=== PATIENT | female | born 1990 | race Caucasian/White ===

== ENCOUNTER 2016-12-24 12:26 | Emergency (ER) | payer OTHER ==
[~2016-12-24] VITALS: Ht 154.9 cm; Wt 59.9 kg
[2016-12-24 12:31] VITALS: BP 115/65; PULSE 78; RESP 16; TEMP 97; O2SAT 100
[2016-12-24] MEDS ORDERED: [UNRECOGNIZED DRUG - REMARK] PO (12:52)
[2016-12-24] MEDS ORDERED: BUSP5TAB PO (12:52)
[2016-12-24] MEDS ORDERED: SODIUM CHLOR 0.9% 1000 ML INJ 1,000 ML IV SCH (12:54)
[2016-12-24] MEDS ORDERED: MORPHINE SULFATE 4 MG/ML INJ IV PUSH ONE (13:00)
[2016-12-24] MEDS ORDERED: SODIUM CHLORIDE 0.9% FLUSH 10 ML FLUSH IV FLUSH PRN (13:00)
[2016-12-24] MEDS ORDERED: ONDANSETRON HCL 4 MG/2 ML VIAL IVP ONE (13:00)
--- NOTE | 2016-12-24 13:10 | PD ---
HPI Chief Complaint: Abdominal Pain Time Seen by Provider: 12:44 Travel History International Travel<30 days: No Contact w/Intl Traveler<30days: No Traveled to known affect area: No History of Present Illness HPI The patient is a 26-year-old female who presents to the emergency department for right upper quadrant abdominal pain for the last 2 weeks. The patient has an intermittent history of right upper quadrant abdominal pain that radiates to the back for the last 2 weeks, exacerbated by eating, associated with nausea and one episode of vomiting, and there are no current alleviating factors. The symptoms are moderate in intensity. The patient denies any previous abdominal surgeries. She denies any associated fever, chills, or sweats. The patient states she had similar episode in April 2016 was diagnosed with a stomach flu the last approximately one month. She denies any known history of pancreatitis, biliary colic, or gallstones. The patient denies , states that she is a lesbian. She denies any dysuria, frequency, urgency, vaginal discharge, or vaginal bleeding. PFSH Past Medical History Asthma: Yes Anxiety: Yes Diminished Hearing: No Respiratory: Yes (asthma) Influenza Vaccination: No ?: Not LMP: 11/25/16 Social History Alcohol Use: Yes (occ) Tobacco Use: Yes (1 ppd) Substance Use: No Allergies-Medications (Allergen,Severity, Reaction): Coded Allergies: etodolac (Verified Allergy, Severe, Anaphylaxis, 12/24/16) Reported Meds & Prescriptions Reported Meds & Active Scripts Active Reported Buspirone (Buspirone HCl) 5 Mg Tab 5 Mg PO BID [birh cotrole pill] 1 Tab PO DAILY Review of Systems Except as stated in HPI: all other systems reviewed are Neg General / Constitutional: No: Fever Cardiovascular: No: Chest Pain or Discomfort Respiratory: No: Shortness of Breath Gastrointestinal: Positive: Nausea, Vomiting, Diarrhea (3 episodes of loose stool today, just started today), Abdominal Pain Genitourinary: No: Urgency, Frequency, Dysuria, Discharge, Vaginal Bleeding Skin: No Rash Physical Exam Narrative GENERAL: Awake, alert, pleasant 26-year-old female who appears her stated age and is in no acute respiratory distress. SKIN: Focused skin assessment warm/dry. HEAD: Atraumatic. Normocephalic. EYES: No injection or drainage. ENT: No nasal bleeding or discharge. Mucous membranes pink and moist. NECK: Trachea midline. No JVD. CARDIOVASCULAR: Regular rate and rhythm. No murmur appreciated. RESPIRATORY: No accessory muscle use. Clear to auscultation. Breath sounds equal bilaterally. GASTROINTESTINAL: Abdomen soft, tender palpation right upper quadrant. Negative McBurney's. Back: No CVA tenderness. MUSCULOSKELETAL: No obvious deformities. No clubbing. No cyanosis. No edema. NEUROLOGICAL: Awake and alert. No obvious cranial nerve deficits. Motor grossly within normal limits. Normal speech. PSYCHIATRIC: Appropriate mood and affect; insight and judgment normal. Data Data Last Documented VS Vital Signs Date Time Temp Pulse Resp B/P Pulse Ox O2 Delivery O2 Flow Rate FiO2 12/24/16 13:15 95 12/24/16 12:46 18 12/24/16 12:31 97.0 78 115/65 Orders Complete Blood Count With Diff (12/24/16 12:54) Comprehensive Metabolic Panel (12/24/16 12:54) Lipase (12/24/16 12:54) Urinalysis - C+S If Indicated (12/24/16 12:54) Us Abdomen Gallbladder (12/24/16 ) Iv Access Insert/Monitor (12/24/16 12:54) Ecg Monitoring (12/24/16 12:54) Oximetry (12/24/16 12:54) Morphine Inj (Morphine Inj) (12/24/16 13:00) Ondansetron Inj (Zofran Inj) (12/24/16 13:00) Sodium Chlor 0.9% 1000 Ml Inj (Ns 1000 M (12/24/16 12:54) Sodium Chloride 0.9% Flush (Ns Flush) (12/24/16 13:00) Ed Urine Pregnancytest Poc (12/24/16 12:54) Labs Laboratory Tests Test 12/24/16 12/24/16 13:01 13:10 White Blood Count 5.1 TH/MM3 Red Blood Count 4.59 MIL/MM3 Hemoglobin 12.7 GM/DL Hematocrit 36.7 % Mean Corpuscular Volume 80.1 FL Mean Corpuscular Hemoglobin 27.6 PG Mean Corpuscular Hemoglobin 34.5 % Concent Red Cell Distribution Width 13.9 % Platelet Count 295 TH/MM3 Mean Platelet Volume 8.2 FL Neutrophils (%) (Auto) 67.6 % Lymphocytes (%) (Auto) 22.9 % Monocytes (%) (Auto) 6.3 % Eosinophils (%) (Auto) 2.1 % Basophils (%) (Auto) 1.1 % Neutrophils # (Auto) 3.4 TH/MM3 Lymphocytes # (Auto) 1.2 TH/MM3 Monocytes # (Auto) 0.3 TH/MM3 Eosinophils # (Auto) 0.1 TH/MM3 Basophils # (Auto) 0.1 TH/MM3 CBC Comment AUTO DIFF Differential Comment AUTO DIFF CONFIRMED Platelet Estimate NORMAL Platelet Morphology Comment NORMAL Sodium Level 140 MEQ/L Potassium Level 3.8 MEQ/L Chloride Level 110 MEQ/L Carbon Dioxide Level 22.8 MEQ/L Anion Gap 7 MEQ/L Blood Urea Nitrogen 7 MG/DL Creatinine 0.76 MG/DL Estimat Glomerular Filtration 91 ML/MIN Rate Random Glucose 86 MG/DL Calcium Level 8.1 MG/DL Total Bilirubin 0.4 MG/DL Aspartate Amino Transf 13 U/L (AST/SGOT) Alanine Aminotransferase 14 U/L (ALT/SGPT) Alkaline Phosphatase 42 U/L Total Protein 7.2 GM/DL Albumin 3.5 GM/DL Lipase 199 U/L Urine Color STRAW Urine Turbidity CLEAR Urine pH 7.0 Urine Specific Lowry 1.033 Urine Protein NEG mg/dL Urine Glucose (UA) NEG mg/dL Urine Ketones NEG mg/dL Urine Occult Blood TRACE Urine Nitrite NEG Urine Bilirubin NEG Urine Leukocyte Esterase NEG Urine RBC 0-3 /hpf Urine Squamous Epithelial 0-5 /hpf Cells Microscopic Urinalysis Comment CULT NOT INDICATED MDM Medical Decision Making Medical Screen Exam Complete: Yes Emergency Medical Condition: Yes Medical Record Reviewed: Yes Interpretation(s) Laboratory Tests Test 12/24/16 12/24/16 13:01 13:10 White Blood Count 5.1 TH/MM3 Red Blood Count 4.59 MIL/MM3 Hemoglobin 12.7 GM/DL Hematocrit 36.7 % Mean Corpuscular Volume 80.1 FL Mean Corpuscular Hemoglobin 27.6 PG Mean Corpuscular Hemoglobin 34.5 % Concent Red Cell Distribution Width 13.9 % Platelet Count 295 TH/MM3 Mean Platelet Volume 8.2 FL Neutrophils (%) (Auto) 67.6 % Lymphocytes (%) (Auto) 22.9 % Monocytes (%) (Auto) 6.3 % Eosinophils (%) (Auto) 2.1 % Basophils (%) (Auto) 1.1 % Neutrophils # (Auto) 3.4 TH/MM3 Lymphocytes # (Auto) 1.2 TH/MM3 Monocytes # (Auto) 0.3 TH/MM3 Eosinophils # (Auto) 0.1 TH/MM3 Basophils # (Auto) 0.1 TH/MM3 CBC Comment AUTO DIFF Sodium Level 140 MEQ/L Potassium Level 3.8 MEQ/L Chloride Level 110 MEQ/L Carbon Dioxide Level 22.8 MEQ/L Anion Gap 7 MEQ/L Blood Urea Nitrogen 7 MG/DL Creatinine 0.76 MG/DL Estimat Glomerular Filtration 91 ML/MIN Rate Random Glucose 86 MG/DL Calcium Level 8.1 MG/DL Total Bilirubin 0.4 MG/DL Aspartate Amino Transf 13 U/L (AST/SGOT) Alanine Aminotransferase 14 U/L (ALT/SGPT) Alkaline Phosphatase 42 U/L Total Protein 7.2 GM/DL Albumin 3.5 GM/DL Lipase 199 U/L Urine Color STRAW Urine Turbidity CLEAR Urine pH 7.0 Urine Specific Lowry 1.033 Urine Protein NEG mg/dL Urine Glucose (UA) NEG mg/dL Urine Ketones NEG mg/dL Urine Occult Blood TRACE Urine Nitrite NEG Urine Bilirubin NEG Urine Leukocyte Esterase NEG Urine RBC 0-3 /hpf Urine Squamous Epithelial 0-5 /hpf Cells Microscopic Urinalysis Comment CULT NOT INDICATED Ultrasound of the gallbladder reveals mild hepatomegaly. Otherwise unremarkable sonogram of the abdomen. Gallbladder contains no stones, demonstrates no wall thickening or pericholecystic fluid. Differential Diagnosis Differential diagnosis includes biliary colic, choledocholithiasis, cholecystitis, pancreatitis, gastritis, lower lobe pneumonia, diverticulitis, nephrolithiasis, pyelonephritis. Narrative Course IV was established, labs were drawn and sent, and the patient was placed on cardiac telemetry monitoring and continuous pulse oximetry monitoring. The patient was administered morphine, Zofran, and IV fluids for her symptoms. UA was sent to lab and bedside UA test was obtained, was negative. Ultrasound of the gallbladder was ordered. Labs are unremarkable. White count is normal. LFTs and lipase are within normal limits. UA reveals trace blood, no other significant findings to suggest obstructive gallbladder pathology. The patient's ultrasound is unremarkable, no evidence of pericholecystic fluid or gallstones. The patient's symptoms may be related to gastritis and/or peptic ulcer disease. The patient we placed on Zantac and will also be prescribed some Benzonia and Zofran for the interim as she is unable to take NSAIDs and NSAIDs may exacerbate her symptoms. She is advised to follow-up with gastroenterology if symptoms persist that she may benefit from outpatient endoscopy. The patient agrees and understands. She is stable for outpatient follow-up. Diagnosis Primary Impression: Epigastric pain Additional Impression: Gastritis Qualified Code: K29.00 - Acute gastritis, presence of bleeding unspecified, unspecified gastritis type Patient Instructions: General Instructions Additional Instructions: Medications as directed. Follow-up with your primary physician. Return if symptoms worsen or progress. Med/Other Pt SpecificInfo: Prescription(s) given Scripts Ondansetron Odt (Zofran Odt)4 Mg Tab4 Mg SL Q6HR PRN (Nausea/Vomiting) #7 TAB Ref 0 Prov:eBn Junior MD 12/24/16 Hydrocodone-Acetaminophen (Benzonia)5-325 mg Tab1 Tab PO Q6H PRN (PAIN) #12 TAB Ref 0 Prov:Ben Junior MD 12/24/16 Ranitidine (Zantac)150 Mg Nyh853 Mg PO BID #60 TAB Ref 0 Prov:Ben Junior MD 12/24/16 Disposition: 01 DISCHARGE HOME Condition: Stable Ben Junior MD Dec 24, 2016 13:10
[2016-12-24 13:14] LABS: AUTOMATED NEUTROPHIL # 3.4 TH/MM3 (1.8-7.7); BASOPHIL # 0.1 TH/MM3 (0-0.2); BASOPHIL % 1.1 % (0.0-2.0); EOSINOPHIL # 0.1 TH/MM3 (0-0.4); EOSINOPHIL % 2.1 % (0.0-4.0); HEMATOCRIT 36.7 % (35.0-46.0); LYMPH % 22.9 % (9.0-44.0); LYMPHOCYTE # 1.2 TH/MM3 (1.0-4.8); MEAN CELL VOLUME 80.1 FL (80.0-100.0); MEAN CORPUSCULAR HEMOGLOBIN 27.6 PG (27.0-34.0); MEAN CORPUSCULAR HGB CONC 34.5 % (32.0-36.0); MONO % 6.3 % (0.0-8.0); NEUT % 67.6 % (16.0-70.0); PLATELET COUNT 295 TH/MM3 (150-450); RED BLOOD COUNT 4.59 MIL/MM3 (4.00-5.30); RED CELL DISTRIBUTION WIDTH 13.9 % (11.6-17.2); WHITE BLOOD COUNT 5.1 TH/MM3 (4.0-11.0)
[2016-12-24 13:15] VITALS: O2SAT 95
[2016-12-24 13:19] LABS: HEMO FLAGS AUTO DIFF
[2016-12-24 13:22] LABS: CHLORIDE 110 MEQ/L (98-107); POTASSIUM 3.8 MEQ/L (3.5-5.1); SODIUM (NA) 140 MEQ/L (136-145)
[2016-12-24 13:27] LABS: ANION GAP 7 MEQ/L (5-15); BICARBONATE 22.8 MEQ/L (21.0-32.0); BLOOD UREA NITROGEN 7 MG/DL (7-18)
[2016-12-24 13:29] LABS: ALT (GPT) 14 U/L (10-53); AST (GOT) 13 U/L (15-37)
[2016-12-24 13:30] LABS: GLOMERULAR FILTRATION RATE 91 ML/MIN (>89)
[2016-12-24 13:31] LABS: TOTAL BILIRUBIN ADULT 0.4 MG/DL (0.2-1.0)
[2016-12-24 13:32] LABS: ALKALINE PHOSPHATASE 42 U/L (45-117)
[2016-12-24 13:49] LABS: BLOOD, URINE TRACE (NEG); GLUCOSE,URINE NEG (NEG); KETONE, URINE NEG (NEG); NITRITE,URINE NEG (NEG)
[2016-12-24 14:03] LABS: URINE COLOR STRAW (YELLW/STRAW)
[2016-12-24 14:04] LABS: COMMENT (UR) CULT NOT INDICATED; CULTURE IF INDICATED CULT NOT INDICATED; RBC, URINE 0-3 /hpf (0-3); SQUAMOUS EPITHELIAL CELL URINE 0-5 /hpf (0-5)
[2016-12-24 14:12] LABS: PLATELET ESTIMATE SMEAR NORMAL (NORMAL); PLATELET MORPHOLOGY NORMAL (NORMAL); SCAN/DIFF AUTO DIFF CONFIRMED
--- NOTE | 2016-12-24 14:28 | RADRPT ---
EXAM DATE/TIME: 12/24/2016 14:03 [facility] COMPARISON: No previous studies available for comparison. INDICATIONS : Right upper quadrant pain. MEDICAL HISTORY : Asthma. Anxiety. Tobacco use. SURGICAL HISTORY : None. ENCOUNTER: Initial ACUITY: 2 weeks PAIN SCORE: 4/10 LOCATION: Right upper quadrant MEASUREMENTS: LIVER: 17.1 cm length COMMON DUCT: 3 mm RIGHT KIDNEY: 10.8 x 4.2 x 4.0 cm FINDINGS: LIVER: The liver is enlarged but demonstrates no focal mass or biliary ductal dilatation. Hepatopetal flow i s noted within the portal vein. COMMON DUCT: No intraluminal mass or stone visualized. GALLBLADDER: Contains no stones, demonstrates no wall thickening or pericholecystic fluid. PANCREAS: The visualized portions are within normal limits. RIGHT KIDNEY: No evidence of hydronephrosis, stone, or mass. CONCLUSION: Mild hepatomegaly. Otherwise unremarkable sonogram of the abdomen. Tree Chisholm MD on December 24, 2016 at 14:16 Board Certified Radiologist. This report was verified electronically.
[2016-12-24] MEDS ORDERED: ZOFR4TAB3 SL (14:39)
[2016-12-24] MEDS ORDERED: NORC5TAB PO (14:39)
[2016-12-24] MEDS ORDERED: ZANT150T2 PO (14:39)
[2016-12-24 15:32] VITALS: BP 103/60
== END 2016-12-24 15:37 | disposition home or self-care (01) ==
LOC: PHED 12:26
DX: K29.00 Acute gastritis without bleeding (principal); F17.200 Nicotine dependence, unspecified, uncomplicated
CPT/HCPCS: 76705; 80053; 81001; 83690; 84703; 85025; 96361; 96374; 96375; 99285; J2270; J2405; J7030

== ENCOUNTER 2018-01-26 10:10 | Inpatient (IN) ==
--- NOTE | 2018-01-26 11:49 | ED ---
HPI General Chief Complaint: Psychiatric Symptoms Stated Complaint: Psych Eval Time Seen by Provider: 01/26/18 11:27 Source: patient Mode of arrival: ambulatory Limitations: no limitations History of Present Illness HPI Narrative: 27-year-old female with history of depression presents to emergency department for evaluation at the recommendation of her therapist, Madyson. She states that she had a first appointment with her therapist today and she recommended she come to the emergency department voluntarily. Patient states that she has had suicidal ideations but is never had a suicide attempt. Says she has a history of self-mutilation by cutting her wrists but has not done this in some time. Says she has been on medications for depression since June but does not believe they are working. Says she drinks alcohol occasionally, approximately 1 time per week. She also smokes 1/2-1 pack per day of tobacco. Says she has a history of migraines, asthma, GERD. States she lives with her at home. MD complaint: suicidal ideation Duration: constant History of same: Yes Relieving factors: none Exacerbating factors: none Associated psychiatric symptoms: depression and suicidal ideation Associated symptoms: denies other symptoms Treatments prior to arrival: none If self harm: admits thoughts of self harm Related Data Home Medications Medication Instructions Recorded Confirmed alprazolam [Xanax] 0.25 mg PO DAILY 01/26/18 01/26/18 hydroxyzine HCl 50 mg PO DAILY 01/26/18 01/26/18 hydroxyzine HCl 150 mg PO HS 01/26/18 01/26/18 mirtazapine 15 mg PO HS 01/26/18 01/26/18 pantoprazole 40 mg PO DAILY 01/26/18 01/26/18 venlafaxine [Effexor XR] 150 mg PO DAILY 01/26/18 01/26/18 Allergies Allergy/AdvReac Type Severity Reaction Status Date / Time etodolac Allergy Severe Anaphylaxis Verified 01/26/18 13:06 ibuprofen Allergy UNKNOWN Verified 01/26/18 13:09 naproxen Allergy UNKNOWN Verified 01/26/18 13:09 NSAIDS (Non-Steroidal Allergy UNKNOWN Verified 01/26/18 13:09 Anti-Inflamma Review of Systems ROS: all other systems reviewed are negative PMFSH History History Provided By: Patient Social History Social History Substance History: Past History Second Hand Smoke Exposure: Yes (PT stated her smokes) Smoking Status: Current every day smoker Tobacco Type: Cigarettes How Often Do You Have a Drink Containing Alcohol: 2 to 4 times a month Recent Travel in [place] within the Last 8 Weeks: No Recent Out of Country Travel within the Last 8 Weeks: No Exam Narrative Exam Narrative: GENERAL: WD, WN in NAD SKIN: Focused skin assessment warm/dry. HEAD: Atraumatic. Normocephalic. EYES: Pupils equal and round. No scleral icterus. No injection or drainage. ENT: No nasal bleeding or discharge. Mucous membranes pink and moist. NECK: Trachea midline. No JVD. CARDIOVASCULAR: Regular rate and rhythm. No murmur appreciated. RESPIRATORY: No accessory muscle use. Clear to auscultation. Breath sounds equal bilaterally. MUSCULOSKELETAL: No obvious deformities. No clubbing. No cyanosis. No edema. NEUROLOGICAL: Awake and alert. No obvious cranial nerve deficits. Motor grossly within normal limits. Normal speech. PSYCHIATRIC: Depressed mood and flat affect; insight and judgment normal. Course Initial Documented Vital Signs Temperature 98.4 F 01/26/18 10:13 Pulse Rate 97 H 01/26/18 10:13 Respiratory Rate 14 01/26/18 10:13 Blood Pressure 109/60 01/26/18 10:13 Pulse Oximetry 100 01/26/18 10:13 Last Documented Vital Signs Temperature 98.7 F 01/27/18 14:45 Pulse Rate 92 H 01/27/18 14:45 Respiratory Rate 18 01/27/18 14:45 Blood Pressure 116/59 L 01/27/18 14:45 Pulse Oximetry 98 01/27/18 14:45 Medical Decision Making [facility] Narrative Medical decision making narrative: 27-year-old female presents emergency department voluntarily for suicidal ideations at the recommendation of her therapist. Says she was having her first appointment when she recommended patient come to the emergency department for evaluation. Vital signs are stable. Labs are ordered for evaluation. Labs are stable. Patient is medically cleared to see psych. @1829, patient stated she wants to leave. Because patient has suicide ideations , I do not believe this is in the best interest of the patient. Kam Act initiated. Medical Screen Exam Complete: Yes Emergency Medical Condition: Yes Differential Diagnosis Differential Diagnosis: Suicide ideations, depression, malingering, anxiety, adjustment disorder Medical Records Medical records reviewed: Yes I reviewed the patient's medical records. Patient is presented to this emergency department one time for gastric pain. Lab Data Result diagrams: 01/26/18 12:53 01/26/18 12:53 POC Results POC Urine Results Negative Lab Results 01/26/18 01/26/18 01/26/18 Range/Units 11:00 12:53 12:53 WBC 8.1 (4.0-11.0) th/mm3 RBC 4.13 (4.00-5.30) mil/mm3 Hgb 12.2 (11.6-15.3) gm/dL Hct 35.8 (35.0-46.0) % MCV 86.6 (80.0-100.0) fL MCH 29.6 (27.0-34.0) pg MCHC 34.2 (32.0-36.0) % RDW 14.1 (11.6-17.2) % Plt Count 322 (150-450) th/mm3 MPV 7.3 (7.0-11.0) fL Neut % (Auto) 73.6 H (16.0-70.0) % Lymph % (Auto) 17.4 (9.0-44.0) % Person % (Auto) 5.2 (0.0-8.0) % Eos % (Auto) 3.3 (0.0-4.0) % Baso % (Auto) 0.5 (0.0-2.0) % Neut # (Auto) 6.0 (1.8-7.7) th/mm3 Lymph # (Auto) 1.4 (1.0-4.8) th/mm3 Person # (Auto) 0.4 (0.0-0.9) th/mm3 Eos # (Auto) 0.3 (0.0-0.4) th/mm3 Baso # (Auto) 0.0 (0.0-0.2) th/mm3 WBC Differential . Differential Comment Auto diff final Sodium 141 (136-145) meq/L Potassium 3.9 (3.5-5.1) meq/L Chloride 109 H (98-107) meq/L Carbon Dioxide 22.4 (21.0-32.0) meq/L Anion Gap 10 (5-15) meq/L BUN 10 (7-18) mg/dL Creatinine 0.72 (0.50-1.00) mg/dL Estimated GFR Greater than 89 (>89) mL/min Random Glucose 92 (74-106) mg/dL Calcium 8.5 (8.5-10.1) mg/dL Total Bilirubin 0.8 (0.2-1.0) mg/dL AST 26 (15-37) U/L ALT 37 (10-53) U/L Alkaline Phosphatase 73 (45-117) U/L Total Protein 7.0 (6.4-8.2) g/dL Albumin 3.8 (3.4-5.0) g/dL TSH 1.060 (0.358-3.740) uIU/mL Urine Opiates Screen Neg (Neg) Ur Barbiturates Screen Neg (Neg) Ur Amphetamines Screen Neg (Neg) U Benzodiazepines Scrn Neg (Neg) Urine Cocaine Screen Neg (Neg) U Cannabinoids Screen Neg (Neg) Serum Alcohol Less than 3 (0-5) mg/dL Discharge Plan Discharge Disposition Patient Disposition: 30 Still Patient Discharge Condition Condition: Stable Discharge Details Diagnosis: Suicidal ideation Physicians Team ED Provider: Ben Junior ED Midlevel Provider: Arabella Mason Attending Provider: Arnav Locke Status ED Status: Left Department Discharge Information Discharge Date/Time: 01/27/18 10:54
[2018-01-26 12:01] LABS: Amphetamine Screen,Urine Neg (Neg); Barbiturate Screen,Urine Neg (Neg); Cannabinoid Screen,Urine Neg (Neg); Cocaine Screen,Urine Neg (Neg)
[2018-01-26 12:02] LABS: Opiate Screen,Urine Neg (Neg)
[2018-01-26 13:36] LABS: Baso % (Auto) 0.5 % (0.0-2.0); Eos # (Auto) 0.3 th/mm3 (0.0-0.4); Eos % (Auto) 3.3 % (0.0-4.0); Hematocrit 35.8 % (35.0-46.0); Hemoglobin 12.2 gm/dL (11.6-15.3); Lymph # (Auto) 1.4 th/mm3 (1.0-4.8); Lymph % (Auto) 17.4 % (9.0-44.0); Mean Corpuscular HGB Conc 34.2 % (32.0-36.0); Mean Corpuscular Hemoglobin 29.6 pg (27.0-34.0); Mean Corpuscular Volume 86.6 fL (80.0-100.0); Mean Platelet Volume 7.3 fL (7.0-11.0); Mono # (Auto) 0.4 th/mm3 (0.0-0.9); Mono % (Auto) 5.2 % (0.0-8.0); Neut % (Auto) 73.6 % (16.0-70.0); Platelet Count 322 th/mm3 (150-450); Red Blood Count 4.13 mil/mm3 (4.00-5.30); Red Cell Distribution Width 14.1 % (11.6-17.2); White Blood Count 8.1 th/mm3 (4.0-11.0)
[2018-01-26 13:57] LABS: Albumin 3.8 g/dL (3.4-5.0); Anion Gap 10 meq/L (5-15); Aspartate Aminotransferase 26 U/L (15-37); Blood Urea Nitrogen 10 mg/dL (7-18); Calcium 8.5 mg/dL (8.5-10.1); Carbon Dioxide 22.4 meq/L (21.0-32.0); Chloride 109 meq/L (98-107); Glomerular Filtration Rate Greater Than 89 mL/min (>89); Glucose,Random 92 mg/dL (74-106); Potassium 3.9 meq/L (3.5-5.1); Sodium 141 meq/L (136-145)
[2018-01-26 13:58] LABS: Alanine Aminotransferase 37 U/L (10-53)
[2018-01-26 14:07] LABS: Alkaline Phosphatase 73 U/L (45-117)
[2018-01-27] MEDS ORDERED: Bisacodyl 10 MG Supp RECTAL PRN (09:09)
[2018-01-27] MEDS: Venlafaxine XR 75 MG Capsule PO SCH (12:54)
--- NOTE | 2018-01-27 16:55 | P.HPPSY ---
Provisional Diagnosis Admission Date: January 27, 2018 09:11 Andrews I.: Major depressive disorder, anxiety, OCD, PTSD Andrews II.: Deferred Andrews III.: Migraines Competence Certification of Person's Competence To Provide Express and Informed Consent I have personally examined Blanca Carrasco, a person being served at [facility] on, January 27, 2018 1644. Express and informed consent means consent voluntarily given in writing, by a competent person, after sufficient explanation and disclosure of the subject matter involved to enable the person to make a knowing and willful decision without any element of force, fraud, deceit, duress, or other form of constraint or coercion. This person is 18 years of age or older, is not now known to be incompetent to consent to treatment with a guardian advocate, and does not have a health care surrogate or proxy currently making medical treatment decisions. I have found this person to be one of the following: [x] Competent to provide express and informed consent, as defined above, for voluntary admission to this facility and is competent to provide express and informed consent for treatment. He/she has the consistent capacity to make well reasoned, willful, and knowing decisions concerning his or her medical or mental health treatment. The person fully and consistently understands the purpose of the admission for examination/placement and is fully capable of personally exercising all rights assured under [place] Incompetent to provide express and informed consent to voluntary admission, and this is incompetent to provide express and informed consent to treatment. The person must be transferred to involuntary status and a petition for a guardian advocate filed with the Circuit Court. [] Refusing to provide express and informed consent to voluntary admission but is competent to provide express and informed consent for treatment. The person must be discharged or transferred to involuntary status. Form shall be completed within 24 hours of a person's arrival at the receiving facility and filed in the clinical record of each person: 1. Admitted on a voluntary basis 2. Permitted to provide express and informed consent to his/her own treatment 3. Allowed to transfer from involuntary to voluntary status 4. Prior to permitting a person to consent to his or her own treatment after having been previously found incompetent to consent to treatment. History of Present Illness Capacity: Has capacity History of Present Illness: The patient is a 27-year-old woman, domiciled with her , mother of a 13 years old son, employed as a caregiver, with a psychiatric history of PTSD , OCD, depression, cannabis use disorder, no previous psychiatric hospitalizations, no previous suicide attempts, history of self cutting behavior without SI in the past, outpatient care in [facility], she is in Effexor 150 mg, hydroxyzine 50 mg twice daily, Xanax 0.25 mg twice daily, Remeron 15 mg, medical history of migraines, who presents to emergency department for evaluation at the recommendation of her therapist, Madyson in [facility]. She states that she had a first appointment with her therapist today and she recommended she come to the emergency department voluntarily. Patient states that she has had suicidal ideations but is never had a suicide attempt. Says she has a history of self-mutilation by cutting her wrists but has not done this in some time, she is to the disc self cutting which she was an adolescent. Says she has been on medications for depression since June but does not believe they are working. The patient reports that she has been under a lot of stress, very anxious, frequent mood swings, periods of irritability, with persistent suicidal thoughts, ideas of cutting herself, but she does not have the intention to do it. The patient is interested in exploring changing in medications. She denies suicidal and homicidal ideation, she denies visual and auditory hallucinations. She reports occasional use of alcohol, as well as marijuana. PPHx:iver, with a psychiatric history of PTSD, OCD, depression, cannabis use disorder, no previous psychiatric hospitalizations, no previous suicide attempts , history of self cutting behavior without SI in the past, outpatient care in [facility], she is in Effexor 150 mg, hydroxyzine 50 mg twice daily, Xanax 0.25 mg twice daily, Remeron 15 mg, PMHx medical history of migraines, Family Hx: Mother has scheduled for Substance Hx: Uses alcohol and marijuana occasionally Social Hx: Patient was born and raised in [place], she lives in [place] since 2010, she is , domiciled in [facility], she has a 13 years old son, 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 - Inpatient Certification I certify that the inpatient services were ordered in accordance with Medicare regulations governing the order. This includes certification that hospital inpatient services are reasonable and necessary and in the case of services not specified as inpatient-only under 42 CFR 419.22(n), that they are appropriately provided as inpatient services in accordance to with the 2-midnight benchmark under 43 CFR 412.3(e) I certify that inpatient psychiatric hospital services are medically necessary. Evaluation and treatment and/or diagnostic testing are expected to improve the patient's condition. The patient needs on a daily basis, active treatment furnished directly by or requiring the supervision of inpatient psychiatric facility personnel. Estimated Total Length of Stay (Days): 7 Plans for Post Hospital Care: Home Review of Systems Psychiatric: Reports depression, Reports irritability, Reports lack of enjoyment , Reports mood swings PMFSH - History History Provided By: Patient - Tobacco History Second Hand Smoke Exposure: Yes (PT stated her smokes) Tobacco Use In Past 30 Days: Yes Smoking Status: Current every day smoker Tobacco Type: Cigarettes - Alcohol History How Often Do You Have a Drink Containing Alcohol: 2 to 4 times a month - Substance Use History Substance History: Past History - Travel History Recent Travel in the USA Within the Last 8 Weeks: No Recent Travel Out of the Country Within the Last 8 Weeks: No - Immunization History Tetanus Immunization: <5 Years Hx Influenza Vaccine This Season: Unable to Assess Medications and Allergies Active Medications: Active Medications Al Hydrox/Mg Hydrox/Simethicone (Mag-Al Plus Susp Liq) 30 ml PO Q6H PRN PRN Reason: DYSPEPSIA Al Hydroxide/Mg Hydroxide (Milk Of Magnesia Liq) 30 ml PO Q12H PRN PRN Reason: Mild Constipation Bisacodyl (Dulcolax Supp) 10 mg RECTAL DAILY PRN PRN Reason: SEVERE CONSITIPATION Clonazepam (Klonopin) 0.5 mg PO Q8HR [place] Lactulose (Lactulose Liq) 30 ml PO DAILY PRN PRN Reason: SEVERE CONSITIPATION Mirtazapine (Remeron) 15 mg PO HS [place] Senna/Docusate Sodium (Cari-Colace) 1 tab PO BID [place] Sennosides (Senokot) 17.2 mg PO Q12H PRN PRN Reason: Moderate Constipation Venlafaxine HCl (Effexor Xr) 150 mg PO DAILY [facility] Last Admin: 01/27/18 12:54 Dose: 150 mg Allergies Allergy/AdvReac Type Severity Reaction Status Date / Time etodolac Allergy Severe Anaphylaxis Verified 01/26/18 13:06 ibuprofen Allergy UNKNOWN Verified 01/26/18 13:09 naproxen Allergy UNKNOWN Verified 01/26/18 13:09 NSAIDS (Non-Steroidal Allergy UNKNOWN Verified 01/26/18 13:09 Anti-Inflamma Home Medications Medication Instructions Recorded Confirmed Type alprazolam [Xanax] 0.25 mg PO DAILY 01/26/18 01/26/18 History hydroxyzine HCl 50 mg PO DAILY 01/26/18 01/26/18 History hydroxyzine HCl 150 mg PO HS 01/26/18 01/26/18 History mirtazapine 15 mg PO HS 01/26/18 01/26/18 History pantoprazole 40 mg PO DAILY 01/26/18 01/26/18 History venlafaxine [Effexor XR] 150 mg PO DAILY 01/26/18 01/26/18 History Results - Labs CBC & Chem 7: 01/26/18 12:53 01/26/18 12:53 Exam Vital signs: Vital Signs 01/26/18 17:59 01/27/18 14:45 Temperature 98.7 F Pulse Rate 58 L 92 H Respiratory Rate 18 18 Blood Pressure 121/58 L 116/59 L Pulse Oximetry 99 98 Intake & Output 01/26/18 01/27/18 01/27/18 18:59 06:59 18:59 Weight 79.832 kg 79.832 kg Other: Weight On Admission 79.832 kg Mental Status Examination Appearance: Appropriate Consciousness: Alert Orientation: x4 Motor Activity: Normal gait Speech: Unremarkable Language: Adequate Fund of Knowledge: Adequate Attention and Concentration: Adequate Memory: Unremarkable Mood: Angry, Irritable Affect: Irritable Thought Process & Associations: Intact Thought Content: Appropriate Hallucination Type: None Delusion Type: None Suicidal Ideation: No Suicidal Plan: No Suicidal Intention: No Homicidal Ideation: No Homicidal Plan: No Homicidal Intention: No Insight: Poor Judgment: Poor Assessment and Plan - Assessment (1) Major depressive disorder Code(s): F32.9 - Major depressive disorder, single episode, unspecified Status : Acute (2) Major depressive disorder Code(s): F32.9 - Major depressive disorder, single episode, unspecified Status : Acute - Plan Plan: Estimated LOS: [] days On psychiatric evaluation today the patient presents voluntarily to the ER with a complaint of frequent mood swings, irritability, frequent panic attacks, difficulty sleeping at night, depression, persistent suicidal ideation, but no plan. There is a patient with a psychiatric history of PTSD, anxiety, depression, no previous psychiatric admissions, but extensive history of self injury behavior, who is outpatient in [facility]. At this moment the patient meets criteria for psychiatric admission. I will restart her Effexor 150 mg, with a plan of racing this medication 225 in inpatient. I will start clonazepam 0.5 mg 3 times daily for anxiety. We will start Remeron 15 mg at bedtime. Brief supportive psychotherapy provided. 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 Justification for Continued Inpatient Stay: Continue psychiatric admission
[2018-01-27] MEDS: clonazePAM 0.5 MG Tablet PO SCH (21:31)
[2018-01-27] MEDS: Senna/Docusate Sodium 8.6/50 MG Tablet PO SCH (21:32)
[2018-01-27] MEDS: Mirtazapine 15 MG Tablet PO SCH (21:32)
[2018-01-27] MEDS: Aluminum/Magnesium/Simethacone Susp 30 ML UDC PO PRN (21:50)
[2018-01-28] MEDS: clonazePAM 0.5 MG Tablet PO SCH ×3 (08:07→21:13)
[2018-01-28] MEDS: Venlafaxine XR 75 MG Capsule PO SCH ×2 (08:07→13:15)
[2018-01-28] MEDS: Senna/Docusate Sodium 8.6/50 MG Tablet PO SCH ×2 (08:08→21:13)
[2018-01-28 09:26] LABS: Calcium 8.7 mg/dL (8.5-10.1); Carbon Dioxide 23.3 meq/L (21.0-32.0); Potassium 3.6 meq/L (3.5-5.1)
[2018-01-28 09:30] LABS: Chol/HDL Ratio 6.38 Ratio; HDL Cholesterol 28.5 mg/dL (40.0-60.0)
[2018-01-28] MEDS: Aluminum/Magnesium/Simethacone Susp 30 ML UDC PO PRN (10:38)
[2018-01-28 14:26] LABS: Hemoglobin A1c 5.1 % (4.3-6.0)
--- NOTE | 2018-01-28 20:46 | P.PNPSY ---
Subjective Remarks: Patient seen for follow, chart reviewed. Discussion nursing staff reported the patient doing better, sleeping well, denies any suicide ideations. Patient was found sitting hospital bed noted B, cooperative. Patient states that she has started having "thoughts" referring to suicide ideations which she had mentioned to her therapist which began in June which she then began treatment and suicide ideations had subsided but had returned less than a month ago. Patient states that her stressors include trying to get her parents home, her father having bought a truck and had her make payments for the note and as well as trying to find a job which parents are not supportive at this time. She also mentions having discord with her mother at this time. Patient reports having poor sleep recently, slept better last night, feeling less depressed and hopeful that she is able to do online schooling which she states is the only thing has given her hope at this time. Patient denies any suicide ideations, perceptional disturbances or delusions at this time. Review of Systems All other systems reviewed negative except as stated in HPI Mental Status Examination Appearance: Appropriate Consciousness: Alert Orientation: x4 Motor Activity: Normal gait Speech: Unremarkable Language: Adequate Fund of Knowledge: Adequate Attention and Concentration: Adequate Memory: Unremarkable Mood: Sad Affect: Sad Thought Process & Associations: Intact, Goal directed, Linear Thought Content: Appropriate Hallucination Type: None Delusion Type: None Suicidal Ideation: No Suicidal Plan: No Suicidal Intention: No Homicidal Ideation: No Homicidal Plan: No Homicidal Intention: No Insight: Poor Judgment: Poor Assessment and Plan - Assessment (1) Major depressive disorder Code(s): F32.9 - Major depressive disorder, single episode, unspecified Status : Acute - Plan Plan: Patient this time continues with depressed mood, denying any suicide ideations today currently having continue stressors which contributed to her depression. We will increase Effexor to 25 mg p.o. daily, continue clonazepam and mirtazapine. Continue to monitor mood and behavior. Discharge planning a progress. Justification for Continued Inpatient Stay: At risk for further decompensation if at lower level of care.
[2018-01-28] MEDS: Mirtazapine 15 MG Tablet PO SCH (21:13)
[2018-01-29] MEDS: clonazePAM 0.5 MG Tablet PO SCH ×3 (06:11→21:37)
[2018-01-29] MEDS: Venlafaxine XR 75 MG Capsule PO SCH (08:21)
[2018-01-29] MEDS: Senna/Docusate Sodium 8.6/50 MG Tablet PO SCH ×2 (08:22→21:37)
[2018-01-29] MEDS: Aluminum/Magnesium/Simethacone Susp 30 ML UDC PO PRN (11:28)
--- NOTE | 2018-01-29 13:24 | P.PNPSY ---
Subjective Remarks: Pt seen and discussed with staff. Chart reviewed. She was admitted for SI under a BA. She denies current SI or intent. She has been compliant with medications and has been taking part in activities. SHe reports that mood have been improving. No medication side effects. Mental Status Examination Appearance: Appropriate Consciousness: Alert Orientation: x4 Motor Activity: Normal gait Speech: Unremarkable Language: Adequate Fund of Knowledge: Adequate Attention and Concentration: Adequate Memory: Unremarkable Mood: Sad Affect: Appropriate Thought Process & Associations: Intact, Linear Thought Content: Appropriate Hallucination Type: None Delusion Type: None Suicidal Ideation: No Suicidal Plan: No Suicidal Intention: No Homicidal Ideation: No Homicidal Plan: No Homicidal Intention: No Insight: Fair Judgment: Impulsive Assessment and Plan - Assessment (1) Major depressive disorder Code(s): F32.9 - Major depressive disorder, single episode, unspecified Status : Acute - Plan Plan: Continue current tx plan Justification for Continued Inpatient Stay: risk of decompensation (1) Major depressive disorder Qualifiers: Major depression recurrence: recurrent Major depression episode severity: moderate
[2018-01-29] MEDS: Mirtazapine 15 MG Tablet PO SCH (21:36)
[2018-01-29] MEDS: Pantoprazole Sodium 20 MG DR Tablet PO SCH (21:37)
[2018-01-30] MEDS: clonazePAM 0.5 MG Tablet PO SCH ×3 (05:35→21:34)
[2018-01-30] MEDS: Pantoprazole Sodium 20 MG DR Tablet PO SCH ×2 (08:52→20:40)
[2018-01-30] MEDS: Senna/Docusate Sodium 8.6/50 MG Tablet PO SCH ×2 (08:52→20:40)
[2018-01-30] MEDS: Venlafaxine XR 75 MG Capsule PO SCH (08:53)
--- NOTE | 2018-01-30 10:56 | P.PNPSY ---
Subjective Remarks: Medical record reviewed and discussed with nursing staff. Vamshi, RN and I met with patient in her room. She states that she is very tired and did not sleep well last night. She states that her Effexor has been increased and that she is feeling alot better. Nursing staff reports that she is very obsessive lining up shoes in a square. Patient encouraged to participate in activities and not spend the entire day in her room. Review of Systems All other systems reviewed negative except as stated in HPI Mental Status Examination Appearance: Appropriate Consciousness: Alert Orientation: x4 Motor Activity: Normal gait Speech: Unremarkable Language: Adequate Fund of Knowledge: Adequate Attention and Concentration: Adequate Memory: Unremarkable Mood: Sad Affect: Appropriate Thought Process & Associations: Intact, Linear Thought Content: Appropriate Hallucination Type: None Delusion Type: None Suicidal Ideation: No Suicidal Plan: No Suicidal Intention: No Homicidal Ideation: No Homicidal Plan: No Homicidal Intention: No Insight: Fair Judgment: Impulsive Assessment and Plan - Assessment (1) Major depressive disorder Code(s): F32.9 - Major depressive disorder, single episode, unspecified Status : Acute - Plan Plan: Continue current tx plan Justification for Continued Inpatient Stay: Moving patient to a less restrictive environment may result in her decompensation. (1) Major depressive disorder Qualifiers: Major depression recurrence: recurrent Major depression episode severity: moderate
[2018-01-30 17:28] VITALS: RESP 16
[2018-01-30] MEDS: Mirtazapine 15 MG Tablet PO SCH (20:40)
[2018-01-31 05:21] VITALS: BP 113/58; PULSE 88; TEMP 98.4; O2SAT 98
[2018-01-31] MEDS: clonazePAM 0.5 MG Tablet PO SCH ×2 (06:07→13:44)
[2018-01-31] MEDS: Senna/Docusate Sodium 8.6/50 MG Tablet PO SCH (09:46)
[2018-01-31] MEDS: Venlafaxine XR 75 MG Capsule PO SCH (09:46)
[2018-01-31] MEDS: Pantoprazole Sodium 20 MG DR Tablet PO SCH (09:47)
--- NOTE | 2018-01-31 15:27 | P.TTN ---
- Patient Problems Problems: 1. Discharge planning 2. Medication compliance 3. Knowledge deficit 4. Lack of coping skills - Progress Toward Goals Provider Present: Dr. Damon Carney (anticipated discharge today) Nurse(s) Present: Jeanette Nurse Input: uneventful weekend, still anxious Psychiatric Counselors Present: Yaritza Wilkins LCSW (discussed safety planning and follow up, agreed to see psychiatrist , scheduled with [facility]) Group Spec/RT/OT/LUO Present: Ruth Briggs [employer] (did not attend, seclusive) - Documentation Teaching Recipient: Patient
--- NOTE | 2018-01-31 23:12 | P.DSPSY ---
Psychiatry Discharge Summary Inpatient Psychiatric care?: Yes Advance Directives: Unknown Reason for Unknown:: Other Mental Health Advance Directive: No Health Care Proxy: No - Admission Admission Date: January 27, 2018 09:11 - Admission Diagnosis (1) Major depressive disorder Code(s): F32.9 - Major depressive disorder, single episode, unspecified Brief History: The patient is a 27-year-old woman, domiciled with her , mother of a 13 years old son, employed as a caregiver, with a psychiatric history of PTSD , OCD, depression, cannabis use disorder, no previous psychiatric hospitalizations, no previous suicide attempts, history of self cutting behavior without SI in the past, outpatient care in [facility], she is in Effexor 150 mg, hydroxyzine 50 mg twice daily, Xanax 0.25 mg twice daily, Remeron 15 mg, medical history of migraines, who presents to emergency department for evaluation at the recommendation of her therapist, Madyson in [facility]. She states that she had a first appointment with her therapist today and she recommended she come to the emergency department voluntarily. Patient states that she has had suicidal ideations but is never had a suicide attempt. Says she has a history of self-mutilation by cutting her wrists but has not done this in some time, she is to the disc self cutting which she was an adolescent. Says she has been on medications for depression since June but does not believe they are working. The patient reports that she has been under a lot of stress, very anxious, frequent mood swings, periods of irritability, with persistent suicidal thoughts, ideas of cutting herself, but she does not have the intention to do it. The patient is interested in exploring changing in medications. She denies suicidal and homicidal ideation, she denies visual and auditory hallucinations. She reports occasional use of alcohol, as well as marijuana. PPHx:iver, with a psychiatric history of PTSD, OCD, depression, cannabis use disorder, no previous psychiatric hospitalizations, no previous suicide attempts , history of self cutting behavior without SI in the past, outpatient care in [facility], she is in Effexor 150 mg, hydroxyzine 50 mg twice daily, Xanax 0.25 mg twice daily, Remeron 15 mg, PMHx medical history of migraines, Family Hx: Mother has scheduled for Substance Hx: Uses alcohol and marijuana occasionally Social Hx: Patient was born and raised in [place], she lives in [place] since 2010, she is , domiciled in [facility], she has a 13 years old son, 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 Tobacco Use In Past 30 Days: Yes How Often Do You Have a Drink Containing Alcohol: 2 to 4 times a month Hospital Course: The patient is a 27-year-old woman, domiciled with her , mother of a 13 years old son, employed as a caregiver, with a psychiatric history of PTSD , OCD, depression, cannabis use disorder, no previous psychiatric hospitalizations, no previous suicide attempts, history of self cutting behavior without SI in the past, outpatient care in [facility], she is in Effexor 150 mg, hydroxyzine 50 mg twice daily, Xanax 0.25 mg twice daily, Remeron 15 mg, medical history of migraines, who presents to emergency department for evaluation at the recommendation of her therapist, Madyson in [facility] and was transferred to the inpatient psychiatry for further evaluation and management. Patient was started on medication regimen to target symptoms which she tolerated well with minimal side effects. Patient was admitted to a locked, inpatient psychiatric unit. Appropriate precautions were in place throughout patient's hospital stay. Patient was seen and examined on the unit by psychiatry. Psychotropic medications were adjusted. There was no evidence of any further suicidality nor homicidality on the inpatient unit as treatment progressed. Patient's mood improved with the benefit of psychopharmacologic treatment and had no behavioral disturbance since admission. Counselor has arranged for follow up appointments for continuity of care as patient would be returning back to her . On the day of discharge: Patient seen and examined ; chart reviewed. Case discussed with nurse and counselor. No behavioral issues overnight. On my examination today, the patient is agreeable to continue treatment and outpatient follow up appointments. She denies any suicidal or homicidal ideation, intent or plan on direct questioning and contracts for safety. I can elicit no mood symptoms; denies any audiovisual hallucinations. No delusional material verbalized today. She denies any side effects from medications. She has an understanding of the medication regimen and indication. No physical complaints. Suicide and violence risk assessment on day of discharge both suggest lower imminent risk, and the patient's level of function is adequate for planned level of outpatient care. Patient has maximized benefit from this inpatient psychiatric hospital stay and will be discharged with follow-up as arranged by counselor. Patient advised to return to psychiatric emergency room for any concerning psychiatric symptoms. Patient agrees with plan. - Discharge Discharge Date: 01/31/18 - Discharge Diagnosis (1) Major depressive disorder Code(s): F32.9 - Major depressive disorder, single episode, unspecified Status : Acute Discharge Disposition: Home - Discharge Instructions Discharge Diet: Heart Healthy Diet Activities You Can Perform: Regular- No Restrictions - Discharge Time > 30 minutes Mental Status Examination Appearance: Appropriate Consciousness: Alert Orientation: x4 Motor Activity: Normal gait Speech: Unremarkable Language: Adequate Fund of Knowledge: Adequate Attention and Concentration: Adequate Memory: Unremarkable Mood: Appropriate Affect: Appropriate Thought Process & Associations: Intact, Goal directed, Linear Thought Content: Appropriate Hallucination Type: None Delusion Type: None Suicidal Ideation: No Suicidal Plan: No Suicidal Intention: No Homicidal Ideation: No Homicidal Plan: No Homicidal Intention: No Insight: Fair Judgment: Impulsive Discharge/Advance Care Plan - Results Vital Signs: Last Vital Signs Temp 98.4 F 01/31/18 05:20 Pulse 88 01/31/18 05:20 Resp 16 01/31/18 05:20 BP 113/58 L 01/31/18 05:20 Pulse Ox 98 01/31/18 05:20 Lab Results: Laboratory Results Hemoglobin A1c 5.1 % (4.3-6.0) 01/28/18 08:24 Triglycerides 277 mg/dL (42-150) H 01/28/18 08:24 Cholesterol 182 mg/dL (120-200) 01/28/18 08:24 LDL Cholesterol, Calc 98 mg/dL (0-99) 01/28/18 08:24 HDL Cholesterol 28.5 mg/dL (40.0-60.0) L 01/28/18 08:24 TSH 1.060 uIU/mL (0.358-3.740) 01/26/18 12:53 Summary of Procedures: none Pending Results: None - Medications Number of antipsychotic medications at discharge: 0 - Discharge Care Plan Goals to Promote Your Health: * To prevent worsening of your condition and complications * To maintain your health at the optimal level Directions to Meet Your Goals: Take your medications as prescribed Follow your dietary instruction Follow activity as directed Keep your appointments as scheduled Take your immunizations and boosters as scheduled If your symptoms worsen call your PCP, if no PCP go to Urgent Care Center or Emergency Room For 30/11 questions related to your inpatient stay or results of tests pending at discharge, please contact Dr. Harrison Carney MD at Smoking is Dangerous to Your Health. Avoid second hand smoking (1) Major depressive disorder Qualifiers: Major depression recurrence: recurrent Major depression episode severity: moderate (1) Major depressive disorder Qualifiers: Major depression recurrence: recurrent Major depression episode severity: moderate
== END 2018-01-31 14:00 | disposition home or self-care (01) ==
LOC: NEPJ 10:10 → H260 01-27 09:11
PROVIDERS: ADMIT Student in an Organized Health Care Education/Training Program; ATTEND Student in an Organized Health Care Education/Training Program